=== PATIENT | male | born 1995 | race Two or more races ===

== ENCOUNTER 2017-11-04 21:57 | Emergency (ER) | payer OTHER ==
[2017-11-04] MEDS ORDERED: Ibuprofen TAB* 800 MG PO ONE (22:08)
--- NOTE | 2017-11-04 23:15 | ED ---
Lower Extremity - HPI Summary HPI Summary: The pt is a 21 y/o male presenting [facility] c/o of L knee dislocation since 22: 00 today. He fell landing on the LE while playing basketball. He notes swelling and sharp, throbbing pain rated 10/10 in severity. The pain is aggravated by movement. - History of Current Complaint Chief Complaint: EDExtremityLower Stated Complaint: LEFT KNEE INJURY Time Seen by Provider: 11/04/17 22:07 Hx Obtained From: Patient Mechanism Of Injury: Twisted Onset of Pain: Prior to Arrival Onset/Duration: Still Present Severity Currently: Severe Pain Intensity: 10 Pain Scale Used: 0-10 Numeric Timing: Constant Location: Is Discrete @ - LLE Character Of Pain: Sharp, Throbbing Associated Signs And Symptoms: Positive: Swelling Aggravating Factor(s): Movement - Allergies/Home Medications Allergies/Adverse Reactions: Allergies Allergy/AdvReac Type Severity Reaction Status Date / Time No Known Allergies Allergy Verified 11/04/17 22:07 PMH/Surg Hx/FS Hx/Imm Hx Previously Healthy: Yes Sensory History: Denies: Hx Deafness Opthamlomology History: Denies: Hx Legally Blind - Cancer History Cancer Type, Location and Year: None reported Infectious Disease History: No Infectious Disease History: Denies: Traveled Outside the [place] in Last 30 Days - Family History Known Family History: Positive: Unknown - Social History Alcohol Use: None Substance Use Type: Reports: None Smoking Status (MU): Light Every Day Tobacco Smoker Review of Systems Negative: Fever Musculoskeletal: Other - Positive: L knee swelling and pain Positive: Decreased ROM - L knee All Other Systems Reviewed And Are Negative: Yes Physical Exam - Summary Physical Exam Summary: Appearance: Well appearing, no pain distress Skin: warm, dry, reflects adequate perfusion Head/face: normal Eyes: EOMI, ARVIN ENT: normal Neck: supple, non-tender Respiratory: CTA, breath sounds present Cardiovascular: RRR, pulses symmetrical Abdomen: non-tender, soft Bowel sounds : present Musculoskeletal: deformity of the L knee ; tL knee tenderness to palpation, no nv deficit. Neuro: normal, sensory motor intact, A&Ox3 Triage Information Reviewed: Yes Vital Signs On Initial Exam: Initial Vitals Temp Pulse Resp BP Pulse Ox 98.4 F 78 15 144/84 100 11/04/17 22:01 11/04/17 22:01 11/04/17 22:01 11/04/17 22:01 11/04/17 22:01 Vital Signs Reviewed: Yes Diagnostics - Vital Signs Vital Signs Temp Pulse Resp BP Pulse Ox 11/04/17 22:01 98.4 F 78 15 144/84 100 - Laboratory Lab Statement: Any lab studies that have been ordered have been reviewed, and results considered in the medical decision making process. - Radiology L knee X Ray Radiology Interpretation Completed By: ED Physician - IMPRESSION : This is a normal X-ray Lower Extremity Course/Dx - Course Course Of Treatment: A 21 year-old M presents to the ED with a CC of L knee dislocation since 22:00 today. He fell landing on the LE while playing basketball. He notes swelling and sharp, throbbing pain rated 10/10 in severity. A physical exam revealed L knee deformity, L knee tenderness and patellar dislocation.patella dislocation reduced without sedation. A L knee X- ray is unremarkable. In the ED course, pt was given Ibuprofen 800mg which improved the symptoms. Patient will be discharged with a final Dx of L patellar dislocation. - Diagnoses Differential Diagnosis/HQI/PQRI: Positive: Dislocation, Fracture (Closed), Sprain, Strain Provider Diagnoses: Dislocation of left patella Discharge - Sign-Out/Discharge Documenting (check all that apply): Patient Departure - DC - Discharge Plan Condition: Improved Disposition: HOME Prescriptions: Ibuprofen TAB* [Motrin TAB* 600 MG] 600 mg PO Q8H PRN #15 tab MDD 3 PRN Reason: Pain Patient Education Materials: Patellar Dislocation (ED) Referrals: Damion Neff MD [Medical Doctor] - 1 Week Teresa Crain NP, Ma [Primary Care Provider] - 3 Days Additional Instructions: Return to ED for any new or worsening symptoms - Billing Disposition and Condition Condition: IMPROVED Disposition: Home - Attestation Statements Document Initiated by Scribe: Yes Documenting Scribe: Emerald Sharma Provider For Whom Ayanna is Documenting (Include Credential): Dr. Lux Bean MD Scribe Attestation: Emerald Hutchinson scribed for Dr. Lux Bean MD on 11/05/17 at 0018. Scribe Documentation Reviewed: Yes Provider Attestation: The documentation as recorded by the Emerald romeo accurately reflects the service I personally performed and the decisions made by me, Dr. Lux Bean MD
[2017-11-04 23:41] VITALS: BP 136/78
--- NOTE | 2017-11-05 07:31 | RAD ---
HISTORY: pain/swelling COMPARISONS: None VIEWS: 4 , Frontal, lateral, axial, and oblique views of the left knee FINDINGS: BONE DENSITY: Normal. BONES: There is no displaced fracture. JOINTS: There is no arthropathy. There is no suprapatellar joint effusion or lipohemarthrosis. ALIGNMENT: There is no dislocation. SOFT TISSUES: Unremarkable. OTHER FINDINGS: None. IMPRESSION: NO ACUTE OSSEOUS INJURY. IF SYMPTOMS PERSIST, RECOMMEND REPEAT IMAGING. R1
== END 2017-11-04 23:38 | disposition home or self-care (01) ==
LOC: ED 21:57
DX: S83.005A Unspecified dislocation of left patella, initial encounter (principal); W19.XXXA Unspecified fall, initial encounter; Y93.67 Activity, basketball; Y92.9 Unspecified place or not applicable; M25.462 Effusion, left knee
CPT/HCPCS: 99282; A9270-GY